=== PATIENT | male | born 2000 | race African-American/Black ===

== ENCOUNTER 2021-11-12 18:04 | Emergency (ER) | payer OTHER ==
[~2021-11-12] VITALS: Ht 172.7 cm; Wt 64.0 kg
[2021-11-12] MEDS ORDERED: ONDANSETRON 4MG ODT PO STA (18:41)
[2021-11-12] MEDS ORDERED: KETOROLAC 60MG/2ML VIAL IM ONE (21:00)
[2021-11-12 21:15] LABS: BASOPHILS % 0.2 % (0.0-2.0); EOSINOPHILS % 0.1 % (0.0-5.0); HEMATOCRIT. 45.5 % (42.0-52.0); HEMOGLOBIN. 15.2 g/dL (14.0-18.0); MEAN CORPUSCULAR HEMOGLOBIN 29.4 pg (28.0-32.0); MEAN CORPUSCULAR VOLUME 88.2 fL (80.0-94.0); MEAN PLATELET VOLUME 9.1 fl (7.4-10.4); MONOCYTES % 4.3 % (2.0-8.0); NEUTROPHILS % 87.4 % (40.0-76.0); PLATELET 215 x1000/uL (130-400); RED BLOOD CELL COUNT 5.16 mill/uL (4.7-6.1); RED CELL DISTRIBUTION WIDTH 13.7 % (11.6-14.6)
[2021-11-12 21:17] LABS: CHLORIDE 106 mEq/L (98-107)
[2021-11-12 21:33] LABS: CLARITY URINE CLEAR (CLEAR); COLOR URINE YELLOW (YELLOW); KETONES URINE NEGATIVE (NEGATIVE); LEUKOCYTE ESTERASE URINE NEGATIVE (NEGATIVE); NITRITE URINE NEGATIVE (NEGATIVE); OCCULT BLOOD URINE TRACE (NEGATIVE); PH URINE 6.5 (4.5-8.0); PROTEIN URINE NEGATIVE (NEGATIVE); SPECIFIC GRAVITY URINE 1.006 (1.005-1.030); UROBILINOGEN URINE 0.2 E.U./dL (0.2-1.0)
[2021-11-12] MEDS ORDERED: TOPUD PO (22:37)
[2021-11-12] MEDS ORDERED: IBUP-2028 MT (22:37)
[2021-11-12] MEDS ORDERED: CEFP200T13 MT (22:42)
[2021-11-12 22:49] VITALS: BP 126/68
== END 2021-11-12 22:50 | disposition home or self-care (01) ==
LOC: ER 18:04
DX: R10.33 Periumbilical pain (principal); K42.9 Umbilical hernia without obstruction or gangrene; R31.9 Hematuria, unspecified; N39.0 Urinary tract infection, site not specified
CPT/HCPCS: 36415; 71045; 74176; 80053; 81003; 83690; 85025; 93005; 96372; 99285; J1885; Q0162